=== PATIENT | female | born 2005 | race Caucasian/White ===

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

== ENCOUNTER 2024-05-13 06:00 | Outpatient (CLI) | payer BC, MEDICAID, SELFPAY ==
--- NOTE | 2024-05-13 09:19 | ANES.PREANE2 ---
Pre-Anesthetic Assessment Height/Weight: Height 1.68 m epidural Familial anesthetic complications: None Social No alcohol and No tobacco Exam alert, oriented x 3, clear to auscultation bilaterally and regular rate & rhythm Airway Mallampati: Class I Dentition: full Anesthetic Plan ASA status: 2 Anesthesia: Regional (specify below) Risk of > 500 ml blood loss (7ml/kg in children): Yes, adequate IV access and fluids planned Medications/Allergies Home Medications Medication Instructions Recorded Confirmed Last Taken Type ondansetron 4 mg disintegrating 4 mg PO Q6H PRN nausea and 11/07/22 11/07/22 Unknown Rx tablet vomiting #12 tabs Allergies Allergy/AdvReac Type Severity Reaction Status Date / Time No Known Allergies Allergy Verified 11/07/22 09:41 Data Anesthesia Cardiac Studies: No Data to Display
== END 2024-05-13 06:01 | disposition home or self-care (01) ==
LOC: OBGYN 06-12 01:58 → OPOB 06-24 11:12
PROVIDERS: PCP Family Medicine; Visit Provider Family Medicine
DX: Z01.818 Encounter for other preprocedural examination (principal)

== ENCOUNTER 2024-05-26 20:18 | Inpatient (IN) | payer BC, MEDICAID, SELFPAY ==
[2024-05-26] VITALS (8 sets, daily range): BP systolic 118–132; BP diastolic 78–94; PULSE 81–96; RESP 16; TEMP 36.6–36.7; BMI 35.6
[2024-05-26] MEDS: miSOPROStol 100 mcg tablet 25 MCG VAGINAL (20:59)
[2024-05-26 21:05] LABS: Basophils % 0.4 %; Eosinophils # 0.1 10^3/uL (0.0-0.8); Eosinophils % 0.9 %; Hematocrit 30.4 % (36-47); Lymphocytes # 1.7 10^3/uL (1.5-6.5); Lymphocytes % 20.2 %; Mean Corpuscular HGB Conc 30.6 g/dL (30-55); Mean Corpuscular Hemoglobin 22.2 pg (27-33); Mean Corpuscular Volume 72.7 fl (85-98); Mean Platelet Volume 11.2 fL (7.4-10.4); Monocytes # 0.6 10^3/uL (0.2-0.9); Monocytes % 6.6 %; Neutrophils # 6.07 10^3/uL (1.8-8.0); Neutrophils % 71.4 %; Nucleated Red Blood Cells % 0 %; Platelet Count 291 10^3/cmm (157-399); Red Blood Count 4.18 10^6/uL (3.85-5.65); Red Cell Distribution Width 15.3 % (12.1-15.1)
[2024-05-26] MEDS: dextrose 5%-lactated ringers 1,000 ML 125 ML IV (21:56)
[2024-05-26] MEDS: ampicillin 2,000 MG in sodium chloride 0.9% (plus) 50 ML 100 MG IV (21:57)
[2024-05-27] VITALS (145 sets, daily range): BP systolic 76–166; BP diastolic 42–122; PULSE 50–166; RESP 15–18; TEMP 36.4–37; O2SAT 95–100
[2024-05-27] MEDS: miSOPROStol 100 mcg tablet 25 MCG VAGINAL (01:17)
[2024-05-27] MEDS: ampicillin 1,000 MG in sodium chloride 0.9% (plus) 50 ML 100 MG IV ×4 (01:52→14:50)
[2024-05-27] MEDS: fentaNYL 50 mcg/mL INJ 2mL IVP (02:05)
[2024-05-27] MEDS: ROPivacaine syringe 100 MG/50 ML SYRINGE 13 MG EPIDURAL ×4 (03:53→15:05)
--- NOTE | 2024-05-27 03:57 | ANES.PAUD2 ---
Pre-Anesthetic Update Pre-Anesthetic Assessment: Date of Surgery/Procedure: 05/27/24 Preop Diagnosis: IUP Proposed Procedure: Labor epidural Any changes to Pre-Anesthetic Assessment?: No Last Intake: solids >8 hr Labs Last 48hrs: Short CBC 05/26/24 Range/Units 20:30 WBC 8.50 (4.5-13.0) 10^3/ uL Hgb 9.30 L (12.4-14.8) g/dL Hct 30.4 L (36-47) % MCV 72.7 L (85-98) fl Plt Count 291 (157-399) 10^3/c mm Neut % (Auto) 71.4 % Neut # (Auto) 6.07 (1.8-8.0) 10^3/u L Blood Bank 05/26/24 20:30 Blood Type O Positive Rho(D) Type Rh positive Antibody Screen Negative Vitals: Temperature 98.0 F 05/26/24 20:30 Temperature Source Axillary 05/26/24 20:30 Pulse Rate 93 05/27/24 03:54 Pulse Rhythm Regular 05/26/24 20:33 Pulse Strength 3+ Normal 05/26/24 20:33 Respiratory Rate 17 05/27/24 02:05 Respiratory Effort Spontaneous, Non- Labored 05/27/24 02:05 Respiratory Depth Normal 05/27/24 02:05 Respiratory Patter n Normal 05/26/24 20:33 Blood Pressure 136/73 05/27/24 03:54 Pulse Oximetry 98 05/27/24 03:48 Oxygen Delivery Me thod Room Air 05/26/24 20:33 Exam: Pre-Anes Outpt Exam: alert, oriented x 3 and clear to auscultation bilaterally Cardiac Studies: No Data to Display Anesthesia Procedures Epidural: Time Out Performed: Yes Consents Signed: Procedure Consent Consent: requested by attending/covering physician, from patient, risks and benefits reviewed and patient agrees to proceed Lumbar Level: L4-L5 Epidural position: sitting Epidural procedure: sterile prep of area, 1% lidocaine to numb the area, 18 g needle, negative for paresthesia passed, neg for paresthesia, test dose given, 1.5% xylocaine 1:200k epi, 0.2% Ropivacaine bolus ml (5), placed PCEA, no systemic response, sterile dressing applied, L.U.D. no apparent complications and 0.2% Ropiavacaine @ mls/hr (10) Additional Comments: MELISSA 7cm, catheter easily threaded to 5cm in the space. VS monitored throughout and remained stable. Pt educated on REFRIGERATION TECHNICIAN and reporting decreased pain with contractions.
[2024-05-27] MEDS: ondansetron 2 mg/ML SDV 2 mL 4 MG IVP ×2 (07:15→13:07)
--- NOTE | 2024-05-27 08:07 | PM.OPHPUD ---
Labor & Delivery H&P Update Date of Procedure: May 27, 2024 Date H&P Performed: 05/22/24 Admission Diagnosis: 19-year-old 1 at 41 weeks estimated gestational age Preop diagnosis: IUP Planned procedure: Vaginal delivery Other information: The patient is a 41-week woman who presented to the hospital for induction due to being postdates. Her had been relatively unremarkable to that point. Her labs were also unremarkable. Her blood type is O+. Her antibody screen was negative. Her glucose screen was negative. She was GBS positive. She is rubella immune. Her infectious disease profile was within normal limits. Related Problem List Diagnoses (1) 41 weeks gestation of : (2) Positive GBS test: A&P Assessment and plan (1) 41 weeks gestation of : GBS protocol was initiated upon admission to the hospital. She has had Cytotec 25 mcg x 2 placed. She had spontaneous rupture membranes. Meconium was noted. Her progression from 8 cm to complete has been longer than typical. We recognize that increases the risk of a , vacuum delivery and/or shoulder dystocia. I discussed the risks of all these options with the patient and her significant other. They want to avoid a if at all possible. Status: Acute (2) Positive GBS test: Status: Acute
[2024-05-27] MEDS: oxytocin 30 UNIT/500 ML BAG IV (10:00)
[2024-05-27] MEDS: dextrose 5%-lactated ringers 1,000 ML 125 ML IV (12:27)
[2024-05-27] MEDS: lactated ringers 1,000 ML 999 ML IV (17:11)
[2024-05-27] MEDS: metoclopramide 5 mg/mL SDV 2 mL 10 MG IVP (17:15)
[2024-05-27] MEDS: famotidine 20 mg/2 mL INJ IVP (17:15)
[2024-05-27] MEDS: BUPivacaine 0.5% INJ 30 mL INJECTION (17:16)
[2024-05-27] MEDS: ceFAZolin 2,000 mg SDV 2000 MG IVP (17:16)
[2024-05-27] MEDS: citric acid-sodium citrate 30 mL UDC PO (17:16)
--- NOTE | 2024-05-27 17:16 | PM.OBGYHP ---
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 She was started on GBS protocol due to her GBS positive status. She was placed on Cytotec 25 mcg x 2. She had spontaneous rupture of membranes. An epidural was placed. She progressed to 8 cm, 100% effaced, and a -1 station at around 7:00 in the morning. From there she made very gradual progress to complete at a 0 station in the early afternoon. She pushed for about an hour and a half and was beginning to wear out. She progressed to +1 station. We discussed options including the option of using a vacuum and she and her significant other decided they wanted to proceed with that option first. We used a vacuum with 3 different contractions with no pop-off's. We stayed in the green zone while the vacuum was employed while she was pushing during the contraction. The pressure was let off between contractions. Despite 3 contractions with the vacuum no discernible progress was made. We discussed the option of continuing to push, but made no aware that the chance of success would be very low. I recommended a section given the circumstances. They both agreed to the . We discussed the risk of bleeding, infection, and damage to intra-abdominal organs. They have no further questions and wished to proceed. Present Details : 1 Para: 0 Labs Rubella: Immune RPR: Negative GBS: Positive Review of Systems General: Reports: 10 or more systems reviewed and unremarkable except in HPI and below Const: Reports: fatigue; Denies: fever(s) Eyes: Denies: change in vision Card: Denies: chest pain Resp: Reports: dyspnea Musc: Reports: back pain Tan/Lymph: Denies: easy bruising Medications/Allergies Home Medications Medication Instructions Recorded Confirmed Last Taken Type ondansetron 4 mg disintegrating 4 mg PO Q6H PRN nausea and 11/07/22 11/07/22 Unknown Rx tablet vomiting #12 tabs Allergies Allergy/AdvReac Type Severity Reaction Status Date / Time No Known Allergies Allergy Verified 11/07/22 09:41 Vitals/I&O/Wt Last Vital Signs Temp 97.5 F L 05/27/24 14:46 Pulse 95 05/27/24 17:02 Resp 17 05/27/24 02:05 BP 134/71 05/27/24 17:02 Pulse Ox 98 05/27/24 03:48 O2 Del Method Room Air 05/26/24 20:33 05/27/24 05/27/24 05/27/24 06:59 14:59 22:59 Intake Total 1100 / 1100 201.667 / 201.667 Output Total 75 / 75 Balance 1025 / 1025 201.667 / 201.667 Weight last 48 hrs Weight 220 lb 8 oz Physical Exam Const: COMMON NORMALS: patient oriented x3 and alert HENMT: COMMON NORMALS: moist oral mucous membranes HEAD & SCALP: normal to inspection Chest: COMMONS NORMALS: normal inspection of the chest Resp: COMMON NORMALS: clear to auscultation bilaterally AUSCULTATION: clear to auscultation bilaterally Cardio: COMMON NORMALS: regular rate and regular rhythm RATE: regular rate RHYTHM: regular rhythm GI: INSPECTION: Yes normal to inspection and Yes other (Gravid) Extremity: COMMON NORMALS: normal to inspection GENERAL: Yes edema (Trace) Neuro: COMMON NORMALS: patient oriented x3, moves all extremities and no sensory deficits noted SENSORIUM/ORIENTATION: Yes alert Psych: COMMON NORMALS: mental status grossly normal Skin: COMMON NORMALS: no rashes or lesions noted GENERAL SKIN EXAM: no rashes or lesions noted Urinary Catheter Management: May: Cath Placed During This Visit: yes Reason for Continuing Indwelling Catheter: Required Immobilization for Trauma or Surgery or Anesthesia Urinary Catheter Date of Insertion: 05/27/24 Urinary Catheter Time of Insertion: 04:20 Data 05/26/24 20:30 Results Labs OB ([facility]): Blood Type O Positive 05/26/24 Antibody Screen Negative 05/26/24 Hct 30.4 % (36-47) L 05/26/24 Hgb 9.30 g/dL (12.4-14.8) L 05/26/24 Rho(D) Type Rh positive 05/26/24 Plt Count 291 10^3/cmm (157-399) 05/26/24 A&P Assessment and plan (1) Failure to progress in labor: We we will proceed with section as soon as anesthesia is able to dose up epidural, and prep is obtained. (2) 41 weeks gestation of : (3) Positive GBS test: Attestations Medical Necessity Statement*: I anticipate routine and post care. Coding Level of Care Code Acute Code for Chg Fwd Diagnoses Failure to progress in labor O62.2 41 weeks gestation of O48.0; Z3A.41 Positive GBS test B95.1
--- NOTE | 2024-05-27 17:30 | P.ANESUD_ITS ---
Pre-Anesthetic Update Pre-Anesthetic Assessment: Date of Surgery/Procedure: 05/27/24 Preop Kellie gnosis: IUP Proposed Procedure: C section Labs Last 48hrs: Short CBC 05/26/24 Range/Units 20:30 WBC 8.50 (4.5-13.0) 10^3/ uL Hgb 9.30 L (12.4-14.8) g/dL Hct 30.4 L (36-47) % MCV 72.7 L (85-98) fl Plt Count 291 (157-399) 10^3/c mm Neut % (Auto) 71.4 % Neut # (Auto) 6.07 (1.8-8.0) 10^3/u L Blood Bank 05/26/24 20:30 Blood Type O Positive Rho(D) Type Rh positive Antibody Screen Negative Vitals: Temperature 97.5 F L 05/27/24 14:46 Temperature Source Axillary 05/26/24 20:30 Pulse Rate 95 05/27/24 17:02 Pulse Rhythm Regular 05/27/24 07:58 Pulse Strength 3+ Normal 05/27/24 07:58 Respiratory Rate 17 05/27/24 02:05 Respiratory Effort Spontaneous, Non- Labored 05/27/24 02:05 Respiratory Depth Normal 05/27/24 02:05 Respiratory Patter n Normal 05/26/24 20:33 Blood Pressure 141/88 05/27/24 17:16 Pulse Oximetry 98 05/27/24 03:48 Oxygen Delivery Me thod Room Air 05/26/24 20:33 Exam: Pre-Anes Outpt Exam: alert, oriented x 3, clear to auscultation bilaterally and regular rate & rhythm Other Pertinent Information: Other Pertinent Information: Called by button sewing machine operator at 5:07 pm for need to proceed to C section due to failure to progress/difficulty getting baby out. Patient states that labor epidural is working well. Plan to use epidural for C section analgesia. Patient understands risks of procedure and wishes to proceed. Cardiac Studies: No Data to Display
--- NOTE | 2024-05-27 18:41 | P.OP_ITS ---
Operative Report Date of procedure: May 27, 2024 Pre-op diagnosis: 19-year-old 1 at 41 weeks estimated gestational age with failure to progress probably due to cephalopelvic disproportion Post-op diagnosis: Same Procedure done: Low-transverse section Specimens removed/disposition: 1. Male infant with a weight of 8 pounds 8 ounces and Apgars of 9 and 10 2. Placenta with a three-vessel cord delivered intact Surgeon: Sherif Olvera MD Estimated blood loss (mL): 800 Complications: None Procedure: The patient was brought back to the operating room where she was prepped and draped in usual sterile fashion including a vaginal prep. Anesthesia was found to be adequate. A lower transverse skin incision was then made with a #10 blade. I then dissected down to the underlying subcutaneous tissue until arriving at the prerectal fascia. The fascia was then nicked with the scalpel bilaterally. The fascial incisions were then carried laterally with Weinstein scissors. Attention was then turned to the superior aspect of the incision which was grasped with kochers and tented up away from the underlying rectus abdominis muscles. The muscles were then dissected away from the fascia manually, and later with Weinstein scissors. Attention was then turned to the inferior aspect of the incision, and the fascia was dissected away from the und erlying muscle in similar fashion. The rectus abdominis muscles were then spread manually. The peritoneum was entered manually. Excellent visualization of the uterus was noted. A lower transverse uterine incision was then made with a #10 blade. Upon arriving at the intrauterine cavity, the uterine incision was then extended manually. The infant was noted to be in vertex position. The baby's head was firmly in the pelvis due to pushing and using the vacuum. The head was delivered with the assistance of the nurse putting pressure from the vagina. The baby was then completely delivered and handed to the waiting nurse after clamping and cutting the cord. Thick meconium was noted. There was also an odor consistent with chorioamnionitis. There was no nuchal cord. The placenta was removed intact. The uterus was externalized. The intrauterine cavity was cleansed of any remaining debris. The uterine incision was reapproximated in 2 layers. The first layer was performed with 0 Vicryl in a running locked stitch. The second layer was an imbricating stitch also using 0 Vicryl. The uterus was replaced into the abdomen. The peritoneum was then irrigated with warm saline. I reexamined the uterine incision and found it to be hemostatic. The rectus abdominis muscles were then reapproximated using 0 Vicryl in a running stitch. The fascia was then reapproximated using 0 Vicryl in running stitch. The subcutaneous tissue was then reapproximated using 0 Vicryl in a running stitch. The skin was reapproximated using tiffany. A sterile dressing was placed. All counts were c orrect x2. Both the mother and baby were in stable condition.
[2024-05-27] MEDS: lanolin oint 7 gm 1 APPLIC TOPICAL (20:28)
[2024-05-27] MEDS: HYDROcodone-acetaminophen 5-325 mg Tablet PO (20:28)
[2024-05-27] MEDS: benzocaine-menthol 78 gm Canister 1 SPRAY TOPICAL (20:28)
[2024-05-28] VITALS (25 sets, daily range): BP systolic 111–136; BP diastolic 57–88; PULSE 77–118; RESP 16–18; TEMP 36.2–36.9; O2SAT 96–98
[2024-05-28] MEDS: ketorolac 30 mg/mL INJ IVP ×3 (00:04→13:14)
[2024-05-28] MEDS: dextrose 5%-lactated ringers 1,000 ML 125 ML IV (01:30)
[2024-05-28] MEDS: HYDROcodone-acetaminophen 5-325 mg Tablet PO ×3 (02:30→18:15)
[2024-05-28] MEDS: simethicone 80 mg Chew PO ×2 (02:31→21:42)
[2024-05-28] MEDS: sodium chloride 0.9% 500 ML 999 ML IV (04:04)
[2024-05-28 06:20] LABS: Hematocrit 25.6 % (36-47); Mean Corpuscular HGB Conc 31.3 g/dL (30-55); Mean Corpuscular Hemoglobin 22.8 pg (27-33); Mean Corpuscular Volume 72.9 fl (85-98); Mean Platelet Volume 10.5 fL (7.4-10.4); Platelet Count 220 10^3/cmm (157-399); Red Blood Count 3.51 10^6/uL (3.85-5.65); Red Cell Distribution Width 15.4 % (12.1-15.1); White Blood Count 15.43 10^3/uL (4.5-13.0)
[2024-05-28] MEDS: PRENATAL VIT NO.130/IRON/FOLIC 1 EACH TABLET PO (08:57)
[2024-05-28] MEDS: ferrous sulfate EC 325 mg Tablet PO ×2 (08:57→18:14)
[2024-05-28] MEDS: docusate sodium 100 mg Capsule PO ×2 (08:57→18:15)
--- NOTE | 2024-05-28 13:21 | ANE.PACU2 ---
Inpatient post-anesthesia follow up: Airway intact: Yes Vital signs: Temperature 97.9 F Pulse Rate 104 Respiratory Rate 16 Blood Pressure 121/72 Pulse Oximetry 98 Oxygen Delivery Me thod Room Air Oxygen Flow Rate Fraction of Inspir ed Oxygen Hydration adequate: Yes Nausea and vomiting: No Pain level: 1 Mental status: Baseline Epidural Start/End: Epidural Start Date: 05/27/24 Epidural Start Time: 03:30 Epidural End Date: 05/27/24 Epidural End Time: 22:30
--- NOTE | 2024-05-28 19:38 | P.PN_ITS ---
MEDICAL OFFICE RECEPTIONIST Subjective 2 Subjective: Interval history: The patient is doing well. Her bleeding has been within normal limits. Her pain is well-controlled. She has not passed gas yet. Labor: Station: -1 Amniotic Membrane Status: Ruptured Monitor Mode: Palpation Contraction Pattern: Regular Status: Category I Vitals/I&O/Wt Last Vital Signs Temp 98.0 F 05/28/24 15:18 Pulse 118 H 05/28/24 15:11 Resp 16 05/28/24 04:06 BP 111/76 05/28/24 15:11 Pulse Ox 98 05/28/24 01:13 O2 Del Method Room Air 05/27/24 19:00 05/28/24 05/28/24 05/28/24 06:59 14:59 22:59 Intake Total 320.833 / 3997.033 Output Total 500 / 1975 600 / 600 250 / 850 Balance -179.167 / 2021.033 -600 / -600 -250 / -850 Weight last 48 hrs Weight 220 lb 8 oz Physical Exam 2 Narrative: She is in no acute distress Lungs are clear auscultation bilaterally Her heart has a regular rate and rhythm Her fundus is below the umbilicus and firm Her dressing is clean, dry and intact Her extremities have trace edema Urinary Catheter Management: May: Cath Placed During This Visit: yes, but has since been removed by the nurse Reason for Continuing Indwelling Catheter: Decision to DC Catheter Urinary Catheter Date of Insertion: 05/27/24 Urinary Catheter Time of Insertion: 04:20 Date Urinary Catheter Removed: 05/28/24 Time Urinary Catheter Discontinued: 10:15 Data 05/28/24 06:10 A&P Assessment and plan (1) Status post : I anticipate routine post care. She did have an elevated white blood count and had an odd smell after the uterus was opened. Regardless, she is show no clinical signs of infection at this time. She has not passed any gas, but is very hungry. (2) 41 weeks gestation of : (3) Failure to progress in labor: Attestations 2 Medical Necessity Statement*: Routine and post care Coding Level of Care Code Acute Code for Chg Fwd Diagnoses Status post Z98.891 41 weeks gestation of O48.0; Z3A.41 Failure to progress in labor O62.2
[2024-05-28 22:43] LABS: Hematocrit 24.8 % (36-47); Mean Corpuscular Hemoglobin 22.8 pg (27-33); Mean Corpuscular Volume 73.4 fl (85-98); Mean Platelet Volume 10.4 fL (7.4-10.4); Platelet Count 229 10^3/cmm (157-399); Red Blood Count 3.38 10^6/uL (3.85-5.65); Red Cell Distribution Width 15.7 % (12.1-15.1); White Blood Count 12.54 10^3/uL (4.5-13.0)
[2024-05-29] MEDS: HYDROcodone-acetaminophen 5-325 mg Tablet PO ×2 (00:14→09:52)
[2024-05-29 04:30] VITALS: BP 121/73; PULSE 110; RESP 16; TEMP 36.6; TEMP 36.7; O2SAT 98
[2024-05-29 04:31] VITALS: BP 121/73; PULSE 110
--- NOTE | 2024-05-29 07:44 | PM.OBGYDC ---
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 She was placed on Cytotec 25 mcg x 2. She had spontaneous rupture of membranes. An epidural was placed. Her contractions began to space out and she was placed on Pitocin for augmentation of her labor. She progressed to complete and made minor progress or after pushing for about an hour and a half. The vacuum was used for 3 contractions, and no change in position was noted. After discussion with the patient and her significant other the decision was made to proceed with a section. The was unremarkable. The patient's course was unremarkable. Her pain was well-controlled. She breast-fed well. She passed gas. Her diet been advanced this morning. Information Peripartum Data: Delivery Method: Physical Exam Narrative: She is in no acute distress Lungs are clear auscultation bilaterally Her heart has a regular rate and rhythm Her fundus is below the umbilicus and firm Her dressing is clean, dry and intact Her extremities have trace edema Urinary Catheter Management: May: Cath Placed During This Visit: yes, but has since been removed by the nurse Reason for Continuing Indwelling Catheter: Decision to DC Catheter Urinary Catheter Date of Insertion: 05/27/24 Urinary Catheter Time of Insertion: 04:20 Date Urinary Catheter Removed: 05/28/24 Time Urinary Catheter Discontinued: 10:15 Discharge Data Studies Completed and Pending Laboratory Results WBC 12.54 10^3/uL (4.5-13.0) 05/28/24 22:33 RBC 3.38 10^6/uL (3.85-5.65) L 05/28/24 22:33 Hgb 7.70 g/dL (12.4-14.8) L 05/28/24 22:33 Hct 24.8 % (36-47) L 05/28/24 22:33 MCV 73.4 fl (85-98) L 05/28/24 22:33 MCH 22.8 pg (27-33) L 05/28/24 22:33 MCHC 31.0 g/dL (30-55) 05/28/24 22:33 RDW 15.7 % (12.1-15.1) H 05/28/24 22:33 Plt Count 229 10^3/cmm (157-399) 05/28/24 22:33 MPV 10.4 fL (7.4-10.4) 05/28/24 22:33 Neut % (Auto) 71.4 % 05/26/24 20:30 Lymph % (Auto) 20.2 % 05/26/24 20:30 [place] % (Auto) 6.6 % 05/26/24 20:30 Eos % (Auto) 0.9 % 05/26/24 20:30 Baso % (Auto) 0.4 % 05/26/24 20:30 Neut # (Auto) 6.07 10^3/uL (1.8-8.0) 05/26/24 20:30 Lymph # (Auto) 1.7 10^3/uL (1.5-6.5) 05/26/24 20:30 [place] # (Auto) 0.6 10^3/uL (0.2-0.9) 05/26/24 20:30 Eos # (Auto) 0.1 10^3/uL (0.0-0.8) 05/26/24 20:30 Baso # (Auto) 0.0 10^3/uL (0.0-0.1) 05/26/24 20:30 Nucleated RBC % (auto) 0 % 05/26/24 20:30 Nucleated RBCs # 0.0 /100WBC 05/26/24 20:30 Blood Type O Positive 05/26/24 20:30 Rho(D) Type Rh positive 05/26/24 20:30 Antibody Screen Negative 05/26/24 20:30 Vitals Last Vital Signs Temp 98.0 F 05/29/24 04:30 Pulse 110 H 05/29/24 04:31 Resp 16 05/29/24 04:30 BP 121/73 05/29/24 04:31 Pulse Ox 98 05/29/24 04:30 O2 Del Method Room Air 05/29/24 04:30 Results Labs OB ([facility]): Blood Type O Positive 05/26/24 Antibody Screen Negative 05/26/24 Hct 24.8 % (36-47) L 05/28/24 Hgb 7.70 g/dL (12.4-14.8) L 05/28/24 Rho(D) Type Rh positive 05/26/24 Plt Count 229 10^3/cmm (157-399) 05/28/24 Discharge Plan Discharge Patient Disposition: Home Condition: Stable Prescriptions: New ibuprofen 800 mg Tablet 800 mg PO TID Qty: 45 0RF hydrocodone-acetaminophen 5-325 mg Tablet 1 tab PO Q6H PRN (Reason: Moderate To Severe Pain) Qty: 28 0RF docusate sodium 100 mg Capsule 100 mg PO BID Qty: 14 0RF ferrous sulfate 325 mg (65 mg iron) Tablet,Delayed Release (Dr/Ec) 325 mg PO BIDWM Qty: 60 0RF Discontinued ondansetron 4 mg tablet,disintegrating 4 mg PO Q6H PRN (Reason: nausea and vomiting) Qty: 12 0RF Rx Instructions: 340b please Discharge Orders: Discharge Order (Routine); Ordered 05/29/24 Ordered By: Sherif Olvera Referrals: Sherif Olvera MD [Primary Care Provider] - 4-7 days (Coordinate with baby visit Also set up 6 week pp check.) Discharge Diet: Usual diet Discharge Activity: Limit activity as instructed Patient Instructions: Depression (DC), Opioid Safety (DC), Preeclampsia and Eclampsia After Delivery (GEN), Hemorrhage (DC), OB - Maria Luz, OB Discharge Report, OB Food/Drug Interaction Guide, OB Care at Home, Opioid Safety, Abnormal Bleeding Discharge Attestations 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
[2024-05-29] MEDS: docusate sodium 100 mg Capsule PO (08:51)
[2024-05-29] MEDS: ibuprofen 800 mg tablet PO (08:51)
[2024-05-29] MEDS: ferrous sulfate EC 325 mg Tablet PO (08:51)
[2024-05-29] MEDS: PRENATAL VIT NO.130/IRON/FOLIC 1 EACH TABLET PO (08:51)
[2024-05-29 11:11] VITALS: BP 151/63; PULSE 109
[2024-05-29 11:14] VITALS: RESP 16; TEMP 36.8
[2024-05-29 11:20] VITALS: BP 125/70; PULSE 106; RESP 18; TEMP 36.8
== END 2024-05-29 11:31 | disposition home or self-care (01) | DRG 788 ==
LOC: OPOB 20:18 → OBGYN 20:18
PROVIDERS: Admitting Provider Family Medicine; PCP Family Medicine; Visit Provider Family Medicine
PROC: 10D00Z1 Extraction of Products of Conception, Low, Open Approach (ICD-10-PCS; CPT 59514; principal; 2024-05-27 17:30)
DX: O48.0 Post-term pregnancy (principal); Z3A.41 41 weeks gestation of pregnancy; Z37.0 Single live birth; O66.5 Attempted application of vacuum extractor and forceps; O62.2 Other uterine inertia; O99.824 Streptococcus B carrier state complicating childbirth; O77.0 Labor and delivery complicated by meconium in amniotic fluid
CPT/HCPCS: 36415; 51702; 59025; 59409; 85025; 85027; 86850; 86900; 96374; 96376; 98960; J0290; J0690; J1885; J2405; J2590; J2765; J2795; J3010; J3490; J7040; J7120; J7121

== ENCOUNTER 2025-04-17 09:31 | Emergency (ER) | payer BC, MEDICAID, SELFPAY ==
--- OUTSIDE RECORDS SUMMARY | 2025-04-17 09:37 | XMS_ITS | Data Portability ---
Author Organization [facility], [facility] Address [address] [address] Assessment Encounter Date Assessment Date Assessment LastModified by Organization Details LastModified Time 05/22/2024 05/22/2024 We have set the patient up for induction on this upcoming Sunday night. We discussed the increased risk of versus the risks of prolonging her further. She has no further questions and wishes to proceed. [email or web address] Not available 05/22/2024 11:37:42 Plan of Treatment Reminders Order Date Submit Date Provider Last Modified By Organization Details Last Modified Time Details Appointments None recorded. Lab None recorded. Referral None recorded. Procedures staple removal (PROC) [id number] [facility], [address] [facility], [place], [address], 4 01:34:54 Surgeries None recorded. Imaging None recorded. Medication Orders None recorded. Patient TargetsNo targets recorded. Patient InstructionsNo instructions recorded. Reason for Referral None Reported. Results Created Date Observation Date Name Description Value Unit Range Abnormal Flag Note LastModifiedBy Organization Detail LastModifiedTime 04/17/20 24 04/19/2024 STREP TOCOC CUS, GROUP B CULTU RE streptococcu s, group B culture SEE NOTE abnormal STREP TOCOC CUS, GROUP B CULTU RE Micro Numbe r: [id number] Test Statu s: Final Speci men Sourc e: Vagin al/an orect al Speci men Quali ty: Adequ ate Resul t: Group B Strep tococ cus isola juana Beta- hemol ytic strep tococ ci are predi ctabl y susce ptibl e to Penic illin and other beta- lacta ms. Mariela ptibi lity testi ng not routi jason perfo rmed. Pleas e conta ct the labor atory withi n 3 days if susce ptibi lity testi ng is david ed. Note per CDC guide lines optim al recov naila is achie danny by swabb ing both the lower vagin a and rectu m (thro ugh the anal sphin cter) . Not Available [facility] [address] [place], [address], 04/19/2024 17:57:09 Result Notes None recorded. Problems Name Problem SNOMED Code Status Onset Date Resolution Date Notes Provider Name and Address Organization Details Recorded Time Normal in [place] 045614102982 103 Active 2023 Sherif Olvera MD [address] [place] [address], [phone], [facility] 4 14:52:08 Normal in [place] 575902758027 103 Completed 2023 Sherif Olvera MD [address] [place] [address], [phone] , [facility] 4 14:52:08 Postopera tive visit 950610052 Active [address] [facility] 4 14:06:41 Problem Notes None recorded. Procedures Surgical History Date Name Laterality Status Provider Name and Address Organization Details Recorded Time 4 delivery completed JOCY KRAMER [facility] 06/05/2024 14:04:34 Imaging Results None recorded. Procedure Notes None recorded. Medical Equipment None Reported. Allergies No known drug allergies Medications Name Sig Start Date Stop Date Status Note LastModified by Organization Details LastModified Time ibuprofen 800 mg tablet TAKE 1 TABLET BY MOUTH THREE TIMES DAILY active Not Available Not Available No t Available hydrocodone 5 mg-acetamino phen 325 mg tablet TAKE 1 TABLET BY MOUTH EVERY 6 HOURS NEEDED active Not Available Not Available No t Available docusate sodium 100 mg capsule TAKE 1 CAPSULE BY MOUTH TWICE DAILY active Not Available Not Available No t Available azithromycin 500 mg tablet Take 2 tablets by oral route for 1 day. 12/24 completed Not Available Not Available Not Available Vitamin 1 QD active Not Available Not Available Not Available FeroSul 325 mg (65 mg iron) tablet TAKE 1 TABLET BY MOUTH TWICE DAILY WITH MEALS active Not Available Not Available No t Available Vitals Date Recorded Body height Body mass index (BMI) Body mass index (BMI) [Percentile] Per age and sex Body weight Respiratory rate Heart rate Body temperature Oxygen saturation Oxygen saturation in Arterial blood by Pulse oximetry Systolic And Diastolic Provider Name and Address Organization Details Last Updated DateTime 4 167.64 cm 33.7 kg/m2 96 % 57993.8 1 g 18 /min 130 /min 97.7 [degF] 98 % 98 % 110/68 mm[Hg] SYMONE LOPEZ [facility] 4 15:31:04 Date Recorded Body height Body mass index (BMI) Body mass index (BMI) [Percentile] Per age and sex Body weight Respiratory rate Heart rate Oxygen saturation Oxygen saturation in Arterial blood by Pulse oximetry Body temperature Systolic And Diastolic Provider Name and Address Organization Details Last Updated DateTime 4 167.64 cm 34.2 kg/m2 97 % 85195.2 8 g 18 /min 108 /min 98 % 98 % 98.4 [degF] 116/76 mm[Hg] JOCY KRAMER [facility] 4 10:34:18 Date Recorded Body height Body mass index (BMI) [Percentile] Per age and sex Body mass index (BMI) Body weight Respiratory rate Body temperature Oxygen saturation Oxygen saturation in Arterial blood by Pulse oximetry Heart rate Systolic And Diastolic Provider Name and Address Organization Details Last Updated DateTime 4 167.64 cm 97 % 35 kg/m2 44329.5 4 g 18 /min 98.3 [degF] 99 % 99 % 116 /min 128/78 mm[Hg] JOCY ROMEROY [facility] 4 16:04:19 Date Recorded Body height Body mass index (BMI) [Percentile] Per age and sex Body mass index (BMI) Body weight Oxygen saturation Oxygen saturation in Arterial blood by Pulse oximetry Heart rate Respiratory rate Body temperature Systolic And Diastolic Provider Name and Address Organization Details Last Updated DateTime 4 167.64 cm 97 % 35.1 kg/m2 14263.3 4 g 96 % 96 % 103 /min 18 /min 98.5 [degF] 120/84 mm[Hg] SYMONE WAHLDESHAWN [facility] L[facility]CNathan 4 11:01:59 Date Recorded Body height Body mass index (BMI) [Percentile] Per age and sex Body mass index (BMI) Body weight Oxygen saturation Oxygen saturation in Arterial blood by Pulse oximetry Heart rate Respiratory rate Body temperature Systolic And Diastolic Provider Name and Address Organization Details Last Updated DateTime 4 167.64 cm 94 % 31.2 kg/m2 59171.1 3 g 99 % 99 % 96 /min 18 /min 98.2 [degF] 118/76 mm[Hg] JOCY NIA [facility] 4 14:11:15 Social History Question Answer Notes LastModified by [employer] Details LastModified Time Tobacco Smoking Status Never Smoker [facility] 12/25/2023 09:15:32 What Is Your Relationship Status? Domestic Partner [email or web address] Information not available 12/25/2023 Sex: Unknown Functional Status Question Answer Note LastModified by [employer] Details LastModified Time Do you use any illicit or recreational drugs? No Information not available 12/25/2023 Do you or have you ever used any other forms of tobacco or nicotine? No Information not available 12/25/2023 What is your level of alcohol consumption? None Information not available 12/25/2023 Are you currently employed? No Information not available 12/25/2023 Mental Status None recorded. Family History Nothing Reported. Medical History Condition Response Anemia Y Gynecological History Statement/Question Response Date of LMP 08/19/2023 LMP Definite Obstetrics History GPAL:G 1 P 1 0 0 1 Type Value Full Term 1 Living 1 Total 1 Immunizations Vaccine Type Date Status Note Provider Ifeanyi vegas and Address Organization Details Recorded Time MMR [address] [facility] 12/25/2023 09:14:14 varicella 5 completed JOCY linder, [facility] 12/25/2023 09:14:14 Hib (PRP-T) [address] [facility] 12/25/2023 09:14:14 meningococcal MCV4P [address] [facility] 12/25/2023 09:14:14 DTaP 5 [facility] 12/25/2023 09:14:14 Past Encounters Encounter ID Performer Location Encounter Start Date Encounter Closed Date Diagnosis/Indication Diagnosis SNOMED-CT Code Diagnosis ICD10 Code Diagnosis Note [id number] KATHRIN TAY [facility] ([facility]) [address] [place] [address] 5 03/20/2023 11:23:11 03/20/2023 13:50:04 High risk sexual behavior 903321293 Z72.51 Discussed pelvic exam vs urine vs blood testing - patient requested urine testing only today. Discussed prophylact ic treatment - patient requested prophylact ic treatment for chlamydia today due to positive exposureDi scussed time frame for test results - will call with any positivesE ducated patient to avoid any unprotecte d sex, especially until results are confirmed. Discussed importance of partners seeking treatment in positive casesEduca juana patient that this is not an all inclusive screening. Encouraged patient to follow up with PCP for more testing if desired. Return to clinic if any changes, any worsening, any concerns.P atient verbalized understand ing of plan. [id number] Sherif Olvera MD [facility] ([facility]) [address] [place] [address] 5 12/25/2023 08:57:46 12/25/2023 09:54:46 Normal in primigravida 4833159840 03324 Z34.01 Z34.02 Gestation period, 18 weeks 99088574 Z3A.18 [id number] Sherif Olvera MD [facility] ([facility]) [address] [place] [address] 5 01/08/2024 15:18:17 01/08/2024 16:15:37 [id number] Sherif Olvera MD [facility] ([facility]) [address] [place] [address] 5 01/24/2024 09:48:42 01/24/2024 11:08:21 Normal in primigrav[place] 5941617111 99162 Z34.02 Gestation period, 22 weeks 99963951 Z3A.22 US obstetr ic scan abnormal 394242942 O28.3 [id number] Sherif Olvera MD [facility] ([facility]) [address] [place] [address] 5 02/11/2024 11:02:38 02/12/2024 18:49:17 [id number] Sherif Olvera MD [facility] ([facility]) [address] [place] [address] 5 02/21/2024 12:49:25 02/21/2024 17:19:24 Normal in primigravida 3124086470 71442 Z34.02 Gestation period, 27 weeks 06689722 Z3A.27 [id number] Sherif Olvera MD [facility] ([facility]) [address] [place] [address] 5 03/06/2024 14:41:56 03/06/2024 16:02:02 Normal in primigravida 8555858290 56231 Z34.03 Gestation period, 29 weeks 85165599 Z3A.29 [id number] Sherif Olvera MD [facility] ([facility]) [address] [place] [address] 5 03/21/2024 12:20:14 03/21/2024 13:15:44 Normal in primigravida 3862637495 57861 Z34.03 Gestation period, 31 weeks 77619759 Z3A.31 [id number] Sherif Olvera MD [facility] ([facility]) [address] [place] [address] 5 04/10/2024 14:11:41 04/10/2024 14:55:58 Normal in primigravida 9482315694 84196 Z34.03 [id number] Sherif Olvera MD [facility] ([facility]) [address] [place] [address] 5 04/17/2024 14:48:01 04/17/2024 16:07:08 Normal in primigravida 0657927466 23677 Z34.03 Gestation period, 35 weeks 08843262 Z3A.35 [id number] Sherif Olvera MD [facility] ([facility]) [address] [place] [address] 5 05/01/2024 14:53:20 05/01/2024 16:17:45 Normal in primigravida 1226564709 71763 Z34.03 Gestation period, 37 weeks 93578154 Z3A.37 [id number] Sherif Olvera MD [facility] ([facility]) [address] [place] [address] 5 05/08/2024 10:09:13 05/08/2024 10:52:35 Normal in primigravida 4778799503 28400 Z34.03 Gestation period, 38 weeks 53621230 Z3A.38 [id number] Sherif Olvera MD [facility] ([facility]) [address] [place] [address] 5 05/15/2024 15:11:15 05/15/2024 16:37:45 Normal in primigravida 5992021545 85555 Z34.03 Gestation period, 39 weeks 13467853 Z3A.39 [id number] Sherif Olvera MD [facility] ([facility]) [address] [place] [address]96[address] 5 05/22/2024 10:40:40 05/22/2024 11:47:02 Normal in primigravida 1655277723 24075 Z34.03 Gestation period, 40 weeks 21592205 Z3A.40 [id number] Sherif Olvera MD [facility] ([facility]) [address] [place] [address] 06/05/2024 13:34:23 06/05/2024 16:11:48 Postoperative visit 959133353 Z48.89 Health Concerns Section Related Observation LastModified by Organization Detai ls LastModified Time None Recorded Concern Status LastModified by Organization Details LastModified Time None Recorded Advance Directives Directive None Recorded Payers Insurance Date Sequence Insurance Name Policy Number Policy Caldwell Covered Member ID Caldwell Member ID Guarantor Name 04/17/2024 1 [employer] [place] [place] [id number] Christine Gamble [id number] Christine Gamble 06/02/2024 1 [employer] [id number] Christine Gamble [id number] Christine Gamble 05/26/2024 [place] [facility] Christine Gamble [id number] Christine Gamble 07/15/2024 1 [place] Christine Gamble [id number] Christine Gamble Notes Date Note Type Note Provider Name and Address Organization Details Recorded Time 4 text/htm l jr ob routineReported by PatientHPIFor associated symptoms, patient reportsbreathlessnessbut reportsno abdominal pain,no cramping,no contractions,normal movement,no bleeding,no vaginal discharge,no vaginal/vulvar itching or irritation,no dysuria,no frequency,no hematuria,no fever,no nausea,no emesis,no constipation,no diarrhea/loose stool,no edema,no visual changes,no headache, andno dizziness.Denies any tobacco, alcohol, or drug use ROS as noted in the HPI Sherif Olvera MD [address] [place] [address], [phone], [facility]. 05/01/2024 16:16:18 4 text/htm l jr ob routineReported by PatientHPIFor associated symptoms, patient reportsbreathlessnessbut reportsno abdominal pain,no cramping,no contractions,normal movement,no bleeding,no rom,no vaginal discharge,no vaginal/vulvar itching or irritation,no dysuria,no frequency,no hematuria,no fever,no nausea,no emesis,no constipation,no diarrhea/loose stool,no edema,no visual changes,no headache, andno dizziness.Denies any tobacco, alcohol, or drug useROS as noted in the [facility] Sherif Olvera MD [address] [place] [address], [phone], [facility], [place]. 05/08/2024 10:43:33 4 text/htm l ob routineReported by PatientIFor associated symptoms, patient reportscontractions (fidelia moreno),abnormal movement (slower and less x3 days),diarrhea/loose stool, andbreathlessnessbut reportsno abdominal pain,no cramping,no bleeding,no vaginal discharge,no vaginal/vulvar itching or irritation,no dysuria,no frequency,no hematuria,no fever,no nausea,no emesis,no constipation,no edema,no visual changes,no headache, andno dizziness.heartburnDenies any tobacco, alcohol, or drug useROS as noted in the [facility] Sherif Olvera MD [address] [place] [address], [phone], [facility], LMadelineC. 05/15/2024 16:31:56 4 text/htm l jr ob routineReported by PatientHPIFor associated symptoms, patient reportsbreathlessnessbut reportsno abdominal pain,no cramping,no contractions,normal movement,no bleeding,no vaginal discharge,no vaginal/vulvar itching or irritation,no dysuria,no frequency,no hematuria,no fever,no nausea,no emesis,no constipation,no diarrhea/loose stool,no edema,no visual changes,no headache, andno dizziness.heartburnDenies any tobacco, alcohol, or drug useROS as noted in the HPI Sherif Olvera MD [address] [place], [address], [facility] 05/22/2024 11:38:07 4 text/htm l jr post or tubalReported by PatientHPIFor associated symptoms, patient reportsfatiguebut reportsincision healing well,normal appetite,no constipation,no nausea,pain improving,no fever,no lower extremity edema/pain, andno dysuria/urinary symptoms. For onset/timing, patient reportsdate of surgery: (05/27/24). For quality, patient reportsprocedure: (). Sherif Olvera MD [address] [place], [address], [facility] 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 Status 12/25/19 1 O Positive Demar Iqra CLOSED Fetus Data First Name Last Name Admitted to NICU Weight (g) Sex Living Outcome Pediatric Complications Fetus ID Race Codes Race Delivery Type Malach ai Eisel e false 3855.53 2 M true Full Term [id number] Problems Problem Notes Problem Name Start Date End Date Resolution Snomed Code Not e Normal in primigravida 12/25/2023 [id number] Marco Calculation Initial Marco Date Initial Exam Date Initial Exam Provider Initial Ultrasound Date Last Menstrual Period Date Ultra Sound Weeks Gestation 05/25/2024 12/25/2023 01/11/2024 08/19/2023 0 Eighteen To Twenty Week Marco Update Ultra Sound Date Fundal Height At Umbil Quickening Date Ultra Sound Latest Weeks Gestation Final Marco Confirmed By Final Marco Confirmed Date Final Marco Date Ultra Sound Latest Days Gestation 01/08/20 24 21 [email or web address] 01/24/2024 05/17/20 24 3 Pre-diogenes Flowsheet Flowsheet Date 12/25/2023 Malik Score Blood Edema Fundus Height Fundus Units Glucose Ketones Leukocytes Nitrite Labor Signs Protein Cervic Dilation Cervic Effacement Cervic Station Type Weight in lbs Pre/Post Dialysis Refused Weight 165.412779585286 BP Diastolic BP Location Tested BP Systolic BP Type 68 R arm 112 sitting Fetus Heart Rate Present A 156 Present Fetus Movement Comments OBI Flowsheet Date 01/08/2024 Malik Score Blood Edema Fundus Height Fundus Units Glucose Ketones Leukocytes Nitrite Labor Signs Protein Cervic Dilation Cervic Effacement Cervic Station Type Weight in lbs Pre/Post Dialysis Refused BP Diastolic BP Location Tested BP Systolic BP Type Fetus Heart Rate Present Fetus Movement Comments Flowsheet Date 01/24/2024 Malik Score Blood Edema Fundus Height Fundus Units Glucose Ketones Leukocytes Nitrite Labor Signs Protein Cervic Dilation Cervic Effacement Cervic Station Type Weight in lbs Pre/Post Dialysis Refused Weight 176.289462257988 BP Diastolic BP Location Tested BP Systolic BP Type 74 R arm 116 sitting Fetus Heart Rate Present A 148 Present Fetus Movement A Yes Comments NOB Flowsheet Date 02/11/2024 Malik Score Blood Edema Fundus Height Fundus Units Glucose Ketones Leukocytes Nitrite Labor Signs Protein Cervic Dilation Cervic Effacement Cervic Station Type Weight in lbs Pre/Post Dialysis Refused BP Diastolic BP Location Tested BP Systolic BP Type Fetus Heart Rate Present Fetus Movement Comments Flowsheet Date 02/21/2024 Malik Score Blood Edema Fundus Height Fundus Units Glucose Ketones Leukocytes Nitrite Labor Signs Protein Cervic Dilation Cervic Effacement Cervic Station 28 cm none 1+ trace Type Weight in lbs Pre/Post Dialysis Refused Weight 183.24229014998 BP Diastolic BP Location Tested BP Systolic BP Type 66 L arm 106 sitting Fetus Heart Rate Present A 160 Present Fetus Movement A Yes Comments feeling well Flowsheet Date 03/06/2024 Malik Score Blood Edema Fundus Height Fundus Units Glucose Ketones Leukocytes Nitrite Labor Signs Protein Cervic Dilation Cervic Effacement Cervic Station Type Weight in lbs Pre/Post Dialysis Refused BP Diastolic BP Location Tested BP Systolic BP Type Fetus Heart Rate Present Fetus Movement Comments RA for traditional Medicaid completed Flowsheet Date 03/06/2024 Malik Score Blood Edema Fundus Height Fundus Units Glucose Ketones Leukocytes Nitrite Labor Signs Protein Cervic Dilation Cervic Effacement Cervic Station 32 cm none neg Type Weight in lbs Pre/Post Dialysis Refused Weight 190.569338236977 BP Diastolic BP Location Tested BP Systolic BP Type 60 L arm 102 sitting Fetus Heart Rate Present A 144 Present Fetus Movement A Yes Comments feeling good Flowsheet Date 03/21/2024 Malik Score Blood Edema Fundus Height Fundus Units Glucose Ketones Leukocytes Nitrite Labor Signs Protein Cervic Dilation Cervic Effacement Cervic Station 32 none trace Negative trace Type Weight in lbs Pre/Post Dialysis Refused Weight 196.471984812991 BP Diastolic BP Location Tested BP Systolic BP Type 74 118 sitting Fetus Heart Rate Present A 146 Present Fetus Movement A Yes Comments low back pain, script given for TDap Flowsheet Date 04/10/2024 Malik Score Blood Edema Fundus Height Fundus Units Glucose Ketones Leukocytes Nitrite Labor Signs Protein Cervic Dilation Cervic Effacement Cervic Station 35 cm none none Negative neg Type Weight in lbs Pre/Post Dialysis Refused Weight 203.05704322921 BP Diastolic BP Location Tested BP Systolic BP Type 72 118 sitting Fetus Heart Rate Present A 140 Present Fetus Movement A Yes Comments SOB back pain Flowsheet Date 04/17/2024 Malik Score Blood Edema Fundus Height Fundus Units Glucose Ketones Leukocytes Nitrite Labor Signs Protein Cervic Dilation Cervic Effacement Cervic Station 35 cm none neg Type Weight in lbs Pre/Post Dialysis Refused 204.680729388348 BP Diastolic BP Location Tested BP Systolic BP Type 74 112 sitting Fetus Heart Rate Present A 152 Fetus Movement A Yes Comments sob, low back pain, group B today Epi consult scheduled for 05/08/24 Flowsheet Date 04/18/2024 Malik Score Blood Edema Fundus Height Fundus Units Glucose Ketones Leukocytes Nitrite Labor Signs Protein Cervic Dilation Cervic Effacement Cervic Station Type Weight in lbs Pre/Post Dialysis Refused BP Diastolic BP Location Tested BP Systolic BP Type Fetus Heart Rate Present Fetus Movement Comments RA completed Flowsheet Date 04/21/2024 Malik Score Blood Edema Fundus Height Fundus Units Glucose Ketones Leukocytes Nitrite Labor Signs Protein Cervic Dilation Cervic Effacement Cervic Station Type Weight in lbs Pre/Post Dialysis Refused BP Diastolic BP Location Tested BP Systolic BP Type Fetus Heart Rate Present Fetus Movement Comments Group B strep Positive. OB r ecords sent. Flowsheet Date 05/01/2024 Malik Score Blood Edema Fundus Height Fundus Units Glucose Ketones Leukocytes Nitrite Labor Signs Protein Cervic Dilation Cervic Effacement Cervic Station 37 cm none trace Negative trace Type Weight in lbs Pre/Post Dialysis Refused Weight 209.689173760086 BP Diastolic BP Location Tested BP Systolic BP Type 68 110 sitting Fetus Heart Rate Present A 144 Present Fetus Movement A Yes Comments shortness of breath Flowsheet Date 05/08/2024 Malik Score Blood Edema Fundus Height Fundus Units Glucose Ketones Leukocytes Nitrite Labor Signs Protein Cervic Dilation Cervic Effacement Cervic Station 39 cm none 1+ trace Type Weight in lbs Pre/Post Dialysis Refused Weight 212.36598794978 BP Diastolic BP Location Tested BP Systolic BP Type 76 116 Fetus Heart Rate Present A 144 Present Fetus Movement A Yes Comments shortness of breath Flowsheet Date 05/15/2024 Malik Score Blood Edema Fundus Height Fundus Units Glucose Ketones Leukocytes Nitrite Labor Signs Protein Cervic Dilation Cervic Effacement Cervic Station 39 cm Hodges Moreno trace 0cm -4 Type Weight in lbs Pre/Post Dialysis Refused Weight 217.945054361623 BP Diastolic BP Location Tested BP Systolic BP Type 78 128 Fetus Heart Rate Present A 144 Present Fetus Movement A Decreased Comments heartburn, s.o.b., slower fm x3 days Flowsheet Date 05/22/2024 Malik Score Blood Edema Fundus Height Fundus Units Glucose Ketones Leukocytes Nitrite Labor Signs Protein Cervic Dilation Cervic Effacement Cervic Station 41 cm none none Negative trace 0cm Type Weight in lbs Pre/Post Dialysis Refused Weight 217.474667146168 BP Diastolic BP Location Tested BP Systolic BP Type 84 120 sitting Fetus Heart Rate Present A 164 Present Fetus Movement A Yes Comments heartburn, sob Flowsheet Date 06/05/2024 Malik Score Blood Edema Fundus Height Fundus Units Glucose Ketones Leukocytes Nitrite Labor Signs Protein Cervic Dilation Cervic Effacement Cervic Station Type Weight in lbs Pre/Post Dialysis Refused Weight [id number] BP Diastolic BP Location Tested BP Systolic BP Type 76 118 Fetus Heart Rate Present Fetus Movement Comments Menstrual History Last Menstrual Date Menses Monthly On Bcp Conception Prior Menses Frequency Hcg Plus Date Menarche Onset Age 1108/19/2023 Genetic Screening And Infection History Question Response Note Patient's Age Will Be 35 Years Or Older At Estim ated Date of Delivery false Thalassemia (Romanian, Pakistani, Mediterranean, Or Background): MCV < 80 false Neural Tube Defect (Meningomyelocele, Spina Bifi da, Or Anencephaly) false Congenital Heart Defect false Down Syndrome false Erwin-Sachs (eg, Hoahaoism, Cajun, Portuguese-[place]) f alse Evelina Disease false Sickle Cell Disease Or Trait () false Hemophilia Or Other Blood Disorders false Muscular Dystrophy false Cystic Fibrosis false Dewey's Chorea false Intellectual Disability/Autism false If Yes, Was Person Tested For Fragile X? false Other Inherited Genetic Or Chromosomal Disorder false Maternal Metabolic Disorder (eg, Type 1 Diabetes , PKU) false Patient Or Baby's Father Had A Child With Defects Not Listed Above false Recurrent Loss, Or A Stillbirth false Medications (including Suppl ements, Vitamins, Herbs, OTC Drugs), Illicit/Recreational Drugs, Alcohol true If Yes, Agent(s) And Strength/Dosage false Any Other Genetic History false Live With Someone With TB Or Exposed To TB false Patient Or Partner Has History Of Genital Herpes false Rash Or Viral Illness Since Last Menstrual Perio d false History Of STD, Gonorrhea, Chlamydia, HPV, Syphi lis true Other Infection History false History of HIV false History of Hepatitis false Prior GBS-infected child false Hemoglobinopathy Or Carrier false Other Structural Defect false Recent Travel History Outside of Country false Mental Retardation/Autism false Delivery Information Delivery Date Delivery Type Labor Anesthesia Weeks Gestation Incision Type Labor Labor Length Hrs Delivered By Post Complications Tubal Sterilization Discharge Date Comments 4 Induce d [facility]-Ep idural 41.3 Low Transvers e false Dr. Olvera None false Discharge Information Feeding Method Contraceptive Method Maternal HG B and HCT Levels Breast
--- OUTSIDE RECORDS SUMMARY | 2025-04-17 09:37 | XMS_ITS | Clinical Summary ---
Author Organization [facility] Address [address] [place] [address] Care Team Providers Care Laboratory Technical Specialist Name Role Phone Grisel Zaragoza Chucky DOUGLAS Primary Care Provider [phone] Allergies No known active allergies Medications No known medications Active Problems No known active problems Immunizations Immunization Administration Dates Next Due DTaP IPV Vaccine 4-6 Yr IM VFC 05/13/2009 MMR Vaccine SQ [facility] 05/13/2009 Varicella Vaccine Live Sq [facility] 05/13/2009 Family History Medical History Relation Name Comments Healthy Father Healthy Mother Relation Name Status Comments Father Alive Mother Alive Social History Tobacco Use Types Packs/Day Years Used Date Smoking Tobacco: Passive Smo ke Exposure - Never Smoker Alcohol Use Standard Drinks/Week Comments Not Asked 0 (1 standard drink = 0.6 oz pur e alcohol) Comments Unknown Sex and Gender Information Value Date Recorded Sex Assigned at Not on file 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 Gender Identity Not on file Sexual Orientation Not on file Last Filed Vital Signs Vital Sign Reading Time Taken Comments Blood Pressure - - Pulse - - Temperature 36.7 C (98 F) 05/13/2009 3:57 PM CDT Respiratory Rate - - Oxygen Saturation - - Inhaled Oxygen Concentration - - Weight 17.7 kg (39 lb) 05/13/2009 3:57 PM CDT Height 101.6 cm (3' 4 ) 05/06/2009 1:25 PM CDT Body Mass Index - - Plan of Treatment Health Maintenance Due Date Last Done Comments CHLAMYDIA SCREENING (ANNUAL) 11-24 YEARS 2015 HPV VACCINES (1 - 3-dose series) 2019 DTAP/TDAP/TD VACCINES (2 - Tdap) 2023 05/13/20 09 HEPATITIS B VACCINES (1 of 3 - 19+ 3-dose series) 02/24 Preventative Visit-Managed Medicaid 03/23/202305/06 CERVICAL CANCER SCREENING 2025 HPV/Cotest (21-29) 2025 PAP SMEAR 2025 INFLUENZA VACCINE (#1) 2025 Insurance MEDICAID [place] Care Teams Laboratory Technical Specialist Relationship Specialty Start Date End Date Grisel Zaragoza DO [address] [place] [address] PCP - General 05/03/09
[2025-04-17 09:44] VITALS: BP 125/67; PULSE 106; RESP 16; TEMP 36.6; O2SAT 100
--- NOTE | 2025-04-17 13:28 | ED_ITS ---
HPI - Skin/Abscess/Foreign Bdy 2 General: Chief complaint: Skin/Abscess/Foreign Body Stated complaint: spider bite inside right thigh Time Seen by Provider: 04/17/25 10:01 History of Present Illness: Presents with complaints of bug bite. Patient reports last night she felt a bite on her right inner thigh. There was a spider present. They killed it and identified it as a brown recluse. She has a series of bites, 3. The first is more anterior medial thigh that is approximately 2 cm in diameter with a dark ecchymotic center. The next is approximately 1 cm in its approximately 1 to 2 cm away from the outer border of the erythema from the first bite. There is an additional bite that is less than 1 cm. Patient denies fevers or chills. Associated symptoms: Deny fever(s) Related Data Previous Rx's ?Medication ?Instructions ?Recorded docusate sodium 100 mg capsule 100 mg PO BID #14 caps 05/29/24 ferrous sulfate 325 mg (65 mg 325 mg PO BIDWM #60 tabs 05/29/24 iron) tablet,delayed release hydrocodone 5 mg-acetaminophen 325 1 tab PO Q6H PRN Mo derate To 05/29/24 mg tablet Severe Pain #28 tabs ibuprofen 800 mg tablet 800 mg PO TID #45 tabs 05/29 cephalexin 500 mg capsule 500 mg PO Q6H 7 days #28 cap s 04/17/25 Allergies Allergy/AdvReac Type Severity Reaction Status Date / Time No Known Allergies Allergy Verified 05/27/24 19:49 Review of Systems 2 General: Reports: 10 or more systems reviewed and unremarkable except in HPI and below Const: Reports: fatigue; Denies: fever(s) Eyes: Denies: change in vision Card: Denies: chest pain Resp: Reports: dyspnea Tan/Lymph: Denies: easy bruising Physical Exam 2 Const: COMMON NORMALS: no acute distress, patient oriented x3 and alert G ENERAL APPEARANCE: cooperative ORIENTATION/CONSCIOUSNESS: Yes awake, Yes oriented to person, Yes oriented to place and Yes oriented to time HENMT: COMMON NORMALS: normocephalic and atraumatic HEAD & SCALP: n ormocephalic and atraumatic FACE & SINUS: normal facial exam MOUTH: Normal oral and palatal mucosa present THROAT: posterior oropharynx normal Eye: COMMON NORMALS: Equal, round and reactive pupils present, EOMs intact bilaterally, conjunctivae normal and no scleral icterus GENERAL EYE: a ppearance normal, both eyes and all related structures ALIGNMENT: Yes alignment normal PERIORBITAL: periorbital findings normal CONJUNCTIVA: Yes conjunctivae normal PUPIL: Yes Equal, round and reactive pupils present Neck/C-Spine: COMMON NORMALS: full ROM GENERAL: Yes normal visual inspection Lymph: LYMPHATIC: no lymphadenopathy noted Chest: COMMONS NORMALS: normal inspection of the chest Breast/axilla inspection: Yes no chest deformity, asymmetry, normal contours, no nodules, masses, tenderness Resp: COMMON NORMALS: normal respiratory effort, No retractions and No use of accessory muscles EFFORT & INSPECTION: Yes able to speak in complete sentences and Yes symmetric chest movement Cardio: COMMON NORMALS: regular rate and Peripheral pulses 2+ throughout R ATE: regular rate PERIPHERAL PULSES: Peripheral pulses 2+ throughout Extremity: COMMON NORMALS: normal to inspection GENERAL: Yes normal exam except as noted Neuro: COMMON NORMALS: patient oriented x3 SENSORIUM/ORIENTATION: Yes alert, Yes oriented to person, Yes oriented to place and Yes oriented to time CRANIAL NERVES: Yes CN normal except as noted Psych: COMMON NORMALS: mental status grossly normal, Normal thought process present, cooperative, activity/motor behavior normal, denies homicidal ideation and denies suicidal ideation THOUGHT PROCESS: Normal thought process present Skin: COMMON NORMALS: no rashes or lesions noted, no wounds and turgor normal SKIN IMAGES (FEMALE): 1. 2 cm area of erythema with ecchymotic center 2. 1 cm area of erythema without ecchymo sis 3. Less than 1 cm area of erythema witho ut ecchymosis GENERAL SKIN EXAM: no rashes or lesions noted and turgor normal Course 2 Vital Signs: Vital signs: Vital Signs Temperature 97.8 F 04/17/25 09:44 Pulse Rate 106 H 04/17/25 09:44 Respiratory Rate 16 04/17/25 09:44 Blood Pressure 125/67 04/17/25 09:44 Pulse Oximetry 100 04/17/25 09:44 Oxygen Delivery Me thod Room Air 04/17/25 09:44 MDM - Skin/Abscess/Foreign Bdy Medicial Decision Making Patient was evaluated in the emergency department today for spider bite. She has cellulitis developing at 1 bite. We are going to treat her with cephalexin here. She has a primary care provider, Dr. Olvera. We have talked about her following up routinely. Taking frequent pictures as this area of erythema changes. We need to monitor for necrosis. Patient is agreeable and verbalizes understanding No radiology studies performed this visit Discharge Plan Discharge Patient Disposition: Home Clinical Impression: Cellulitis Condition: Stable Prescriptions: New cephalexin 500 mg capsule 500 mg PO Q6H 7 Days Qty: 28 0RF No Action ibuprofen 800 mg Tablet 800 mg PO TID Qty: 45 0RF hydrocodone-acetaminophen 5-325 mg Tablet 1 tab PO Q6H PRN (Reason: Moderate To Severe Pain) Qty: 28 0RF docusate sodium 100 mg Capsule 100 mg PO BID Qty: 14 0RF ferrous sulfate 325 mg (65 mg iron) Tablet,Delayed Release (Dr/Ec) 325 mg PO BIDWM Qty: 60 0RF Discharge Orders: Discharge ED (Routine); Ordered 04/17/25 Ordered By: Cheryl Calderon Referrals: Sherif Olvera MD [Primary Care Provider, [facility]] Discharge Diet: Advance as tolerated Discharge Activity: Resume usual activity Patient Instructions: Cellulitis (ED), Brown Recluse Spider Bite (ED), Pain Management, Patient Portal & Keven Instructions Activity Restrictions/Additional Instructions: Please follow-up with your primary care doctor?Dr. Olvera in the next week for recheck of your symptoms. Please return to the emergency department for new concerning or worsening symptoms Take your antibiotics as prescribed Print Language: Syriac Coding Level of Care Code ED Egg Crater for [place]
== END 2025-04-17 13:40 | disposition home or self-care (01) ==
PROVIDERS: Emergency Provider Nurse Practitioner; PCP Family Medicine
DX: L03.115 Cellulitis of right lower limb (principal); T63.331A Toxic effect of venom of brown recluse spider, accidental (unintentional), initial encounter; X58.XXXA Exposure to other specified factors, initial encounter
CPT/HCPCS: 99283; J9999